=== PATIENT | female | born 1970 | race Caucasian/White ===

== ENCOUNTER 2018-11-21 15:26 | Emergency (ER) | payer OTHER ==
[~2018-11-21] VITALS: Ht 162.6 cm; Wt 82.6 kg
[~2018-11-21 15:26] MED LIST: B12 5,000 MCG1 EACH; BIOTIN2500 MCG; DIOVAN40 MG; INVOKANA100 MG; JANUVIA100 MG; LASIX20 MG; VITAL-D RX TABL1 TAB
[2018-11-21] MEDS ORDERED: SIMVASTATIN20 MG PO (15:31)
[2018-11-21] MEDS ORDERED: AMARIL (15:31)
[2018-11-21] MEDS ORDERED: COZAAR50 MG PO (15:32)
[2018-11-21] MEDS ORDERED: JARDIANCE10 MG PO (15:33)
== END 2018-11-21 22:06 | disposition home or self-care (01) ==
LOC: ER 15:26
DX: E11.65 Type 2 diabetes mellitus with hyperglycemia (principal)

== ENCOUNTER 2019-04-08 20:05 | Emergency (ER) | payer OTHER ==
[~2019-04-08] VITALS: Ht 160 cm; Wt 90.7 kg
[~2019-04-08 20:05] MED LIST changes: +AMARIL; +COZAAR50 MG PO; +JARDIANCE10 MG PO; +SIMVASTATIN20 MG PO
[2019-04-08] MEDS ORDERED: JANUVIA50 MG (20:20)
[2019-04-08] MEDS ORDERED: VITAMIN D1000 UNIT (20:21)
== END 2019-04-08 23:54 | disposition home or self-care (01) ==
LOC: ER 20:05
DX: M17.11 Unilateral primary osteoarthritis, right knee (principal); M25.561 Pain in right knee

== ENCOUNTER 2020-01-06 09:42 | Emergency (ER) | payer OTHER ==
[~2020-01-06] VITALS: Ht 162.6 cm; Wt 90.7 kg
[~2020-01-06 09:42] MED LIST changes: +JANUVIA50 MG; +VITAMIN D1000 UNIT
[2020-01-06] MEDS ORDERED: JANUVIA100 MG PO (10:27)
[2020-01-06] MEDS ORDERED: COZAAR25 MG PO (10:28)
== END 2020-01-06 14:35 | disposition home or self-care (01) ==
LOC: ER 09:42
DX: B34.9 Viral infection, unspecified (principal); B96.0 Mycoplasma pneumoniae [M. pneumoniae] as the cause of diseases classified elsewhere

== ENCOUNTER 2020-10-18 10:07 | Emergency (ER) | payer OTHER ==
[~2020-10-18] VITALS: Ht 160 cm; Wt 93.0 kg
[~2020-10-18 10:07] MED LIST changes: +COZAAR25 MG PO; +JANUVIA100 MG PO
[2020-10-18] MEDS ORDERED: GLIMEPIRIDE2 MG (10:24)
== END 2020-10-18 11:28 | disposition home or self-care (01) ==
LOC: ER 10:07
DX: M77.11 Lateral epicondylitis, right elbow (principal); M75.21 Bicipital tendinitis, right shoulder

== ENCOUNTER → 2021-06-21 | Emergency (ER) | payer OTHER ==
[~2021-06-21] VITALS: Ht 160 cm; Wt 83.9 kg
[~2021-06-21] MED LIST changes: +BIOTIN5 MG PO; +CELEBREX200MG PO; +GLIMEPIRIDE2 MG; +GLIMEPIRIDE4 MG; +SKELAXIN800 MG PO; +VITAMIN B122500 MCG PO
== END | disposition home or self-care (01) ==
LOC: ER 12:58
DX: M54.89 Other dorsalgia (principal)

== ENCOUNTER → 2022-03-14 | Emergency (ER) | payer OTHER ==
[~2022-03-14] VITALS: Ht 157.5 cm; Wt 87.1 kg
[~2022-03-14] MED LIST changes: +LANTUS SOL100 UNIT/1 SUBCUTANEO; +MEDROL4 MG PO; +METHOTREXATE2.5 MG PO; +NEURONTIN300 MG PO; +NEURONTIN800 MG PO; +SINGULAIR10 MG PO
== END | disposition home or self-care (01) ==
LOC: ER 15:27
DX: U07.1 COVID-19 (principal)

== ENCOUNTER 2022-06-07 08:51 | Outpatient (CLI) | payer OTHER | END 2022-06-07 08:54 | disposition home or self-care (01) | LOC: SONOGRAMA 08:51 | PROVIDERS: ATTEND Pathology Anatomic Pathology & Clinical Pathology | DX: E04.2 Nontoxic multinodular goiter (principal) ==

== ENCOUNTER 2024-07-03 13:06 | Emergency (ER) | payer OTHER ==
[~2024-07-03] VITALS: Ht 160 cm; Wt 75.3 kg
[2024-07-03] MEDS ORDERED: HUMALOG100 UNIT/2 SUBCUTANEO (13:26)
[2024-07-03] MEDS ORDERED: MOUNJARO2.5 MG/0.5 SUBCUTANEO (13:28)
[2024-07-03] MEDS ORDERED: 0.9 % SODIUM CHLORIDE 500 ML IV ONE (16:00)
[2024-07-03 16:31] LABS: HEMATOCRIT 42.2 % (36.0-45.00); HEMOGLOBIN 14.2 g/dL (12.0-15.00); MEAN CELL VOLUME 83.6 fL (80.00-100.00); MEAN CORPUSCULAR HEMOGLOBIN 28.1 pg (27.00-32.0); MEAN CORPUSCULAR HGB CONC 33.6 g/dl (32.0-36.0); PLATELET COUNT 274 K/uL (150-450); RED BLOOD COUNT 5.05 M/uL (4.00-6.00)
[2024-07-03 16:41] LABS: RED CELL DISTRIBUTION WIDTH 16.7 % (11.5-14.5)
[2024-07-03] MEDS ORDERED: INSULIN REGULAR, HUMAN 1,000 UNIT/10 ML UNITS IV ONE (16:45)
[2024-07-03 16:52] LABS: CALCIUM 10.1 mg/dL (8.5-10.1); CREATININE SERUM 0.87 mg/dL (0.55-1.02); GFR 67.6; POTASSIUM 5.1 mEq/L (3.5-5.1)
== END 2024-07-03 18:21 ==
LOC: ER 13:07
PROVIDERS: Nurse Practitioner Family
DX: R73.9 Hyperglycemia, unspecified (principal); I10 Essential (primary) hypertension; Z91.013 Allergy to seafood

== ENCOUNTER 2024-07-27 07:30 | Outpatient (CLI) | payer OTHER ==
[~2024-07-27 07:30] MED LIST changes: +HUMALOG100 UNIT/2 SUBCUTANEO; +MOUNJARO2.5 MG/0.5 SUBCUTANEO
== END 2024-07-27 07:41 | disposition home or self-care (01) ==
LOC: NUCLEAR 07:30
PROVIDERS: ATTEND Internal Medicine
DX: I20.9 Angina pectoris, unspecified (principal)

== ENCOUNTER 2024-10-26 19:11 | Emergency (ER) | payer OTHER ==
[~2024-10-26] VITALS: Ht 160 cm; Wt 75.7 kg
[2024-10-26] MEDS ORDERED: MOUNJARO12.5 MG/0. SQ (19:49)
[2024-10-26 22:45] LABS: HEMATOCRIT 37.2 % (36.0-45.00); HEMOGLOBIN 12.4 g/dL (12.0-15.00); MEAN CELL VOLUME 87.5 fL (80.00-100.00); MEAN CORPUSCULAR HEMOGLOBIN 29.1 pg (27.00-32.0); MEAN CORPUSCULAR HGB CONC 33.3 g/dl (32.0-36.0); PLATELET COUNT 250 K/uL (150-450); RED BLOOD COUNT 4.25 M/uL (4.00-6.00); RED CELL DISTRIBUTION WIDTH 15.9 % (11.5-14.5)
== END 2024-10-26 23:45 | disposition home or self-care (01) ==
LOC: ER 19:14
PROVIDERS: Preventive Medicine Public Health & General Preventive Medicine
DX: B34.9 Viral infection, unspecified (principal); E11.9 Type 2 diabetes mellitus without complications; Z79.4 Long term (current) use of insulin; I10 Essential (primary) hypertension; Z91.013 Allergy to seafood; Z20.822 Contact with and (suspected) exposure to COVID-19